=== PATIENT | female | born 1960 | race Asian ===

== ENCOUNTER → 2019-04-13 | Outpatient (CLI) | payer BC ==
[~2019-04-13] MED LIST: ASCO-316 PO; FENO145 PO; FERR-43 PO; FOLI0.4T2 PO; METF-414 PO; VALS1TAB34 PO
[2019-04-13 12:49] LABS: BASOPHILS % 1.3 % (0.0-2.0); EOSINOPHILS % 4.5 % (0.0-5.0); HEMOGLOBIN. 13.9 g/dL (12.0-16.0); LYMPHOCYTES % 23.1 % (20.0-50.0); MEAN CORPUSCULAR HEMOGLOBIN 22.1 pg (28.0-32.0); MEAN PLATELET VOLUME 6.8 fl (7.4-10.4); MONOCYTES % 8.2 % (2.0-8.0); NEUTROPHILS % 62.9 % (40.0-76.0); PLATELET 243 x1000/uL (130-400); RED BLOOD CELL COUNT 6.29 mill/uL (4.2-5.4)
[2019-04-13 13:00] LABS: CHLORIDE 102 mEq/L (98-107)
[2019-04-13 13:07] LABS: LDL CHOLESTEROL 142 mg/dL (5-100)
[2019-04-13 13:09] LABS: HDL CHOLESTEROL 61 mg/dL (40-59)
[2019-04-13 13:31] LABS: VITAMIN B12 SERUM 505 pg/mL (211-911)
[2019-04-13 13:34] LABS: PLATELET ESTIMATE NORMAL
[2019-04-13 16:19] LABS: CLARITY URINE CLEAR (CLEAR); COLOR URINE YELLOW (YELLOW); KETONES URINE NEGATIVE (NEGATIVE); LEUKOCYTE ESTERASE URINE 1+ (NEGATIVE); NITRITE URINE NEGATIVE (NEGATIVE); OCCULT BLOOD URINE NEGATIVE (NEGATIVE); PROTEIN URINE NEGATIVE (NEGATIVE); SPECIFIC GRAVITY URINE 1.008 (1.005-1.030); UROBILINOGEN URINE 0.2 E.U./dL (0.2-1.0)
[2019-04-15 09:11] LABS: VITAMIN D 25-OH 31.7 ng/mL (30.0-100.0)
[2019-04-15 10:06] LABS: *CREATININE RANDOM URINE 52.1 mg/dL (Not Estab.); MICROALBUMIN RANDOM URINE <3.0 ug/mL (Not Estab.)
[2019-04-15 19:15] LABS: ANTI-NUCLEAR ANTIBODIES DIRECT Negative (Negative)
== END | disposition home or self-care (01) ==
LOC: LAB 12:09
DX: Z00.00 Encounter for general adult medical examination without abnormal findings (principal)
CPT/HCPCS: 36415; 80061; 81003; 82043; 82306; 82570; 82607; 83036; 83735; 84443; 86038; 86430

== ENCOUNTER → 2019-05-06 | Outpatient (CLI) | payer BC | END | disposition home or self-care (01) | LOC: MAMMO 07:31 | DX: Z12.31 Encounter for screening mammogram for malignant neoplasm of breast (principal) | CPT/HCPCS: 77067 ==